=== PATIENT | female | born 1975 | race Caucasian/White ===

== ENCOUNTER 2017-08-22 09:19 | Emergency (ER) | payer MEDICAID, SELFPAY ==
[2017-08-22 09:21] VITALS: BP 131/75; PULSE 75; RESP 18; O2SAT 98
--- NOTE | 2017-08-22 09:22 | HMH.EDABDPAI ---
ED Disposition Clinical Impression: Generalized anxiety disorder Chest pain Qualifiers: Chest pain type: unspecified Qualified Code(s): R07.9 - Chest pain, unspecified Disposition: Home, Self-Care Condition on Discharge: Fair Additional Instructions: Advised to followup [facility] Dr. Woo to discuss treatment for her Anxiety disorder. Referrals: Yuriy Woo MD [Primary Care Provider] - 3 days Time of Disposition: 11:07 - Critical Care Critical Care Time: No Attestation: On , the high probability of a clinically significant, sudden or life threatening deterioration of the following system(s) required my full and direct attention, intervention and personal management. The time I documented below is in addition to time spent performing reported procedures but includes the following listed in this critical care notation. Medical Decision Making - Medical Records Medical records reviewed: Yes: I reviewed the patient's medical records. Vital Signs: 08/22/17 09:21 Temperature Source Oral Pulse Rate [Right Brachial] 75 Respiratory Rate 18 Blood Pressure [Right Arm] 131/75 Blood Pressure Mean [Right Arm] 93 Blood Pressure Source [Right Arm] Automatic Cuff Blood Pressure Position [Right Arm] Sitting 02 Sat by Pulse Oximetry 98 Oxygen Delivery Method Room Air - Lab Data Lab results reviewed: Yes: I reviewed the patient's lab results. Lab Results 08/22/17 09:15: WBC 4.1 L, RBC 4.39, Hgb 14.0, Hct 40.9, MCV 93.1, MCH 31.8 H, MCHC 34.1, RDW 12.1, Plt Count 207, MPV 8.0, Neut % (Auto) 50.6, Lymph % (Auto) 36.7, [place] % (Auto) 5.4, Eos % (Auto) 5.9, Baso % (Auto) 1.4, Neut # (Auto) 2.1, Lymph # (Auto) 1.5, [place] # (Auto) 0.2, Eos # (Auto) 0.2, Baso # (Auto) 0.1 08/22/17 09:15: Sodium 141, Potassium 3.7, Chloride 104, Carbon Dioxide 31, Anion Gap 9.7, BUN 11, Creatinine 0.90, Estimated Creat Clear 3, Estimated GFR 68, Est GFR ( Amer) 83, Glucose 88, Calcium 9.0, Total Bilirubin 0.2, AST 17, ALT 26, Alkaline Phosphatase 110, Total Creatine Kinase 78, CK-MB (CK-2) 0.6, CK-MB (CK-2) Rel Index 0.8, Troponin I < 0.02, Total Protein 7.6, Albumin 3.9, Globulin 3.7 H, Albumin/Globulin Ratio 1.1 08/22/17 09:50: Urine Color Yellow, Urine Appearance Clear, Urine pH 6.0, Ur Specific [place] 1.025, Urine Protein Negative, Urine Glucose (UA) Negative, Urine Ketones Negative, Urine Blood 2+, Urine Nitrate Negative, Urine Bilirubin Negative, Urine Urobilinogen 0.2, Ur Leukocyte Esterase Negative, Urine RBC 5-10, Urine WBC Occasional, Ur Squamous Epith Cells 10-20, Urine Bacteria 2+ 08/22/17 09:50: Urine Opiates Screen Negative, Ur Barbituates Screen Negative, Ur Phencyclidine Scrn Negative, Ur Amphetamines Screen Negative, U Methamphetamines Scrn Negative, U Benzodiazepines Scrn Negative, Urine Cocaine Screen Negative, U Marijuana (THC) Screen Negative Result diagrams: 08/22/17 09:15 08/22/17 09:15 Orders (Tests/Meds): ED MEDICATIONS Discontinued Medications Generic Name Dose Route Start Last Admin Trade Name Louieq PRN Reason Stop Dose Admin Aspirin 324 mg 08/22/17 09:29 08/22/17 09:51 Aspirin 81mg Chewable Tablet PO 08/22/17 09:30 324 mg ONCE ONE Administration ORDERS Category Date Time Status Urine Culture Stat Micro 08/22/17 09:50 Received - Radiology Data #1 Image(s): Chest Image Reviewed: Yes I have reviewed radiologist's interpretation Preliminary Findings: Normal/NAD - Jem Inquiry Pt receiving controlled substance: No Jem was queried for this patient: No Abdominal Pain HPI - General Chief Complaint: PAIN Stated Complaint: chest pain Mode of Arrival: Ambulatory Limitations: No Limitations - History of Present Illness HPI narrative: Pt comes to the ED with complaints of chest pain over the past day or two and feels like it is gas. It started yesterday after she ate breakfast and then she drank a Pepsi and passed gas and felt better. She also reports she has
--- NOTE | 2017-08-22 09:29 | XR_ITS ---
XR chest 2V HISTORY: ITS.REASON: chest pain ORDERING PHYSICIAN: Shon Morales MD PATIENT AGE: 42 years COMPARISON: 09/10/2013 FINDINGS: The cardiomediastinal silhouette and pulmonary vascularity are within normal limits. The lungs are clear without infiltrates, suspicious nodules, or pleural effusions. There is a calcified granuloma in the right upper lobe No acute bony abnormalities. IMPRESSION: No change with no acute finding
--- NOTE | 2017-08-22 09:32 | ED_ITS ---
ED Disposition Clinical Impression: Generalized anxiety disorder Chest pain Qualifiers: Chest pain type: unspecified Qualified Code(s): R07.9 - Chest pain, unspecified Disposition: Home, Self-Care Condition on Discharge: Fair Additional Instructions: Advised to followup [facility] Dr. Woo to discuss treatment for her Anxiety disorder. Referrals: Yuriy Woo MD [Primary Care Provider] - 3 days Time of Disposition: 11:07 - Critical Care Critical Care Time: No Attestation: On , the high probability of a clinically significant, sudden or life threatening deterioration of the following system(s) required my full and direct attention, intervention and personal management. The time I documented below is in addition to time spent performing reported procedures but includes the following listed in this critical care notation. Medical Decision Making - Medical Records Medical records reviewed: Yes: I reviewed the patient's medical records. Vital Signs: 08/22/17 09:21 Temperature Source Oral Pulse Rate [Right Brachial] 75 Respiratory Rate 18 Blood Pressure [Right Arm] 131/75 Blood Pressure Mean [Right Arm] 93 Blood Pressure Source [Right Arm] Automatic Cuff Blood Pressure Position [Right Arm] Sitting 02 Sat by Pulse Oximetry 98 Oxygen Delivery Method Room Air - Lab Data Lab results reviewed: Yes: I reviewed the patient's lab results. Lab Results 08/22/17 09:15: WBC 4.1 L, RBC 4.39, Hgb 14.0, Hct 40.9, MCV 93.1, MCH 31.8 H, MCHC 34.1, RDW 12.1, Plt Count 207, MPV 8.0, Neut % (Auto) 50.6, Lymph % (Auto) 36.7, [place] % (Auto) 5.4, Eos % (Auto) 5.9, Baso % (Auto) 1.4, Neut # (Auto) 2.1 , Lymph # (Auto) 1.5, [place] # (Auto) 0.2, Eos # (Auto) 0.2, Baso # (Auto) 0.1 08/22/17 09:15: Sodium 141, Potassium 3.7, Chloride 104, Carbon Dioxide 31, Anion Gap 9.7, BUN 11, Creatinine 0.90, Estimated Creat Clear 3, Estimated GFR 68, Est GFR ( Amer) 83, Glucose 88, Calcium 9.0, Total Bilirubin 0.2, AST 17, ALT 26, Alkaline Phosphatase 110, Total Creatine Kinase 78, CK-MB (CK-2 ) 0.6, CK-MB (CK-2) Rel Index 0.8, Troponin I < 0.02, Total Protein 7.6, Albumin 3.9, Globulin 3.7 H, Albumin/Globulin Ratio 1.1 08/22/17 09:50: Urine Color Yellow, Urine Appearance Clear, Urine pH 6.0, Ur Specific [place] 1.025, Urine Protein Negative, Urine Glucose (UA) Negative, Urine Ketones Negative, Urine Blood 2+, Urine Nitrate Negative, Urine Bilirubin Negative, Urine Urobilinogen 0.2, Ur Leukocyte Esterase Negative, Urine RBC 5-10 , Urine WBC Occasional, Ur Squamous Epith Cells 10-20, Urine Bacteria 2+ 08/22/17 09:50: Urine Opiates Screen Negative, Ur Barbituates Screen Negative, Ur Phencyclidine Scrn Negative, Ur Amphetamines Screen Negative, U Methamphetamines Scrn Negative, U Benzodiazepines Scrn Negative, Urine Cocaine Screen Negative, U Marijuana (THC) Screen Negative Result diagrams: 08/22/17 09:15 08/22/17 09:15 Orders (Tests/Meds): ED MEDICATIONS Discontinued Medications Generic Name Dose Route Start Last Admin Trade Name Freq PRN Reason Stop Dose Admin Aspirin 324 mg 08/22/17 09:29 08/22/17 09:51 Aspirin 81mg Chewable Tablet PO 08/22/17 09:30 324 mg ONCE ONE Administration ORDERS Category Date Time Status Urine Culture Stat Micro 08/22/17 09:50 Received - Radiology Data #1 Image(s): Chest Image Reviewed: Yes I have reviewed radiologist's interpret
[2017-08-22 09:44] LABS: Hematocrit 40.9 % (37.0-47.0); Red Blood Count 4.39 M/mm3 (4.20-5.40); White Blood Count 4.1 K/mm3 (4.8-10.8)
[2017-08-22 09:45] LABS: Basophils % 1.4 % (0.1-2.0); Eosinophils % 5.9 % (0.1-12.0); Lymphocytes % 36.7 K/mm3 (10-50); Mean Corpuscular HGB Conc 34.1 g/dL (31.8-35.4); Mean Corpuscular Hemoglobin 31.8 pg (27.0-31.2); Mean Corpuscular Volume 93.1 fl (81-99); Monocytes % 5.4 % (1.7-9.3); Neutrophils % 50.6 % (37.0-80.0); Platelet Count 207 K/mm3 (142-424); Red Cell Distribution Width 12.1 % (11.5-17.5)
[2017-08-22 09:46] LABS: Basophils # 0.1 K/mm3 (0-0.2); Eosinophils # 0.2 K/mm3 (0.0-0.4); Lymphocytes # 1.5 K/mm3 (0.7-4.5); Monocytes # 0.2 K/mm3 (0.1-1.0); Neutrophils # 2.1 K/mm3 (1.8-7.8)
[2017-08-22 09:53] LABS: Microscopic, Urine URINE MICROSCOPIC (MICROSCOPIC)
[2017-08-22 09:58] LABS: Appearance,Urine CLEAR (Clear); Bilirubin,Urine Negative (Negative); Blood, Urine 2+ (Negative); Color,Urine YELLOW (Yellow); Glucose,Urine (UA) Negative (Negative); Ketones,Urine Negative (Negative); Leukocyte Esterase,Urine Negative (Negative); Nitrate,Urine Negative (Negative); Protein,Urine Negative (Negative); Specific Gravity, Urine 1.025 (1.005-1.030); Urobilinogen,Urine 0.2 EU/dl (0.2)
[2017-08-22 10:05] LABS: Amphetamine/Metha Screen,Urine Negative ng/mL (<1000); Barbiturates Screen,Urine Negative ng/mL (<200); Benzodiazepines Screen,Urine Negative ng/mL (200); Cannabinoid Screen,Urine Negative ng/mL (<50); Cocaine Screen,Urine Negative ng/g (<300); Methadone Screen,Urine Negative ng/mL (<300); Opiate Screen,Urine Negative ng/mL (<300); Phencyclidine Screen,Urine Negative ng/mL (<25)
[2017-08-22 10:12] LABS: Alanine Aminotransferase 26 U/L (12-78); Albumin Level 3.9 gm/dL (3.4-5.0); Albumin/Globulin Ratio 1.1 (1.1-1.8); Alkaline Phosphatase 110 U/L (46-116); Anion Gap 9.7 mEq/L (5-15); Aspartate Amino Transferase 17 U/L (15-37); Bilirubin,Total 0.2 mg/dL (0.2-1.0); Blood Urea Nitrogen 11 mg/dL (7-18); CKMB Relative Index 0.8 U/L (0-4.0); Carbon Dioxide 31 mmol/L (21.0-32.0); Chloride 104 mmol/L (98-107); Creatine Kinase 78 U/L (26-192); Creatine Kinase MB 0.6 mg/ml (0.0-3.6); Creatinine Clearance Estimated 3 mL/min (0-300); Estimated Glomerular Filt Rate 68 ml/min (>60); GFR (African American) 83 ML/MIN (>60); Globulin 3.7 gm/dl (1.3-3.2); Glucose 88 mg/dL (74-106); Potassium 3.7 mmoL/L (3.5-5.1); Sodium 141 mmol/L (136-145); Total Protein,Serum 7.6 gm/dL (6.4-8.2); Troponin I < 0.02 ng/ml (0.00-0.06)
[2017-08-22 10:16] LABS: Bacteria,Urine 2+ /lpf; WBC,Urine Occasional #/hpf (0-3)
[2017-08-22 11:40] VITALS: BP 136/85; PULSE 80; RESP 18; TEMP 36.7; O2SAT 98
== END 2017-08-22 11:40 | disposition home or self-care (01) ==
PROVIDERS: Emergency Provider General Practice; Family Provider Emergency Medicine; PCP Emergency Medicine
DX: R07.9 Chest pain, unspecified (principal); F41.1 Generalized anxiety disorder
CPT/HCPCS: 71046; 80053; 80305; 81001; 82550; 82553; 84484; 85025; 87086; 93005; 93041; 99282

== ENCOUNTER → 2019-03-25 14:10 | Outpatient (CLI) | payer OTHER, SELFPAY ==
[2019-03-25 14:42] LABS: Alanine Aminotransferase 19 U/L (12-78); Albumin Level 4.1 gm/dL (3.4-5.0); Albumin/Globulin Ratio 1.2 (1.1-1.8); Alkaline Phosphatase 114 U/L (46-116); Anion Gap 13.8 mEq/L (5-15); Aspartate Amino Transferase 19 U/L (15-37); Bilirubin,Total 0.3 mg/dL (0.2-1.0); Blood Urea Nitrogen 14 mg/dL (7-18); Calcium 9.6 mg/dL (8.5-10.1); Carbon Dioxide 30 mmol/L (21.0-32.0); Chloride 101 mmol/L (98-107); Chol/HDL Ratio 6.8 (1-3.5); Cholesterol 293 mg/dL (140-200); Creatinine,Serum 0.98 mg/dL (0.55-1.02); Estimated Glomerular Filt Rate 61 ml/min (>60); GFR (African American) 74 ML/MIN (>60); Globulin 3.5 gm/dl (1.3-3.2); Glucose 108 mg/dL (74-106); HDL Cholesterol 43 mg/dL (29-89); LDL Cholesterol 205 mg/dL (0-130); Potassium 3.8 mmoL/L (3.5-5.1); Sodium 141 mmol/L (136-145); T4 (Thyroxine) 11.2 ug/dl (4.7-13.3); Thyroid Stimulating Hormone 3.44 uIU/ml (0.358-3.740); Total Protein,Serum 7.6 gm/dL (6.4-8.2); Triglycerides 225 mg/dL (30-200); VLDL Cholesterol 45 mg/dL (0-40)
[2019-03-25 15:00] LABS: Basophils % 0.7 % (0.1-2.0); Eosinophils # 0.4 K/mm3 (0.0-0.4); Eosinophils % 8.1 % (0.1-12.0); Hematocrit 45.1 % (37.0-47.0); Hemoglobin 14.7 g/dL (12.2-16.2); Lymphocytes # 1.7 K/mm3 (0.7-4.5); Lymphocytes % 31.2 % (10-50); Mean Corpuscular HGB Conc 32.6 g/dL (31.8-35.4); Mean Corpuscular Volume 95.1 fl (81-99); Mean Platelet Volume 8.9 fl (7.4-10.4); Monocytes # 0.4 K/mm3 (0.1-1.0); Monocytes % 7.9 % (1.7-9.3); Neutrophils # 2.7 K/mm3 (1.8-7.8); Platelet Count 242 K/mm3 (142-424); Red Blood Count 4.74 M/mm3 (4.20-5.40); Red Cell Distribution Width 12.5 % (11.5-17.5); White Blood Count 5.3 K/mm3 (4.8-10.8)
[2019-03-29 14:21] LABS: Vitamin D 25 Hydroxy 31.9 ng/mL (30.0-100.0)
== END ==
PROVIDERS: Visit Provider Nurse Practitioner Family
DX: R53.83 Other fatigue (principal); E03.9 Hypothyroidism, unspecified; K21.9 Gastro-esophageal reflux disease without esophagitis; Z79.899 Other long term (current) drug therapy
CPT/HCPCS: 80053; 80061; 82652; 84436; 84443; 85025

== ENCOUNTER → 2020-09-07 14:20 | Outpatient (CLI) | payer OTHER, SELFPAY ==
[2020-09-07 14:33] LABS: Basophils # 0.1 K/mm3 (0-0.2); Basophils % 0.9 % (0.1-2.0); Eosinophils # 0.6 K/mm3 (0.0-0.4); Eosinophils % 10.4 % (0.1-12.0); Hematocrit 41.2 % (37.0-47.0); Hemoglobin 13.7 g/dL (12.2-16.2); Lymphocytes # 2.5 K/mm3 (0.7-4.5); Lymphocytes % 41.2 % (10-50); Mean Corpuscular HGB Conc 33.2 g/dL (31.8-35.4); Mean Corpuscular Hemoglobin 32.4 pg (27.0-31.2); Mean Corpuscular Volume 97.6 fl (81-99); Mean Platelet Volume 8.9 fl (7.4-10.4); Monocytes # 0.4 K/mm3 (0.1-1.0); Monocytes % 6.6 % (1.7-9.3); Neutrophils # 2.5 K/mm3 (1.8-7.8); Neutrophils % 40.8 % (37.0-80.0); Platelet Count 235 K/mm3 (142-424); Red Blood Count 4.23 M/mm3 (4.20-5.40); Red Cell Distribution Width 12.5 % (11.5-17.5); White Blood Count 6.1 K/mm3 (4.8-10.8)
[2020-09-07 14:48] LABS: Alanine Aminotransferase 16 U/L (12-78); Albumin Level 4.4 g/dl (3.5-5.0); Albumin/Globulin Ratio 1.4 (1.1-1.8); Alkaline Phosphatase 115 U/L (38-126); Anion Gap 11.8 mEq/L (5-15); Aspartate Amino Transferase 29 U/L (14-36); Bilirubin,Total 0.3 mg/dl (0.2-1.3); Blood Urea Nitrogen 14 mg/dl (7-17); Calcium 9.8 mg/dl (8.4-10.2); Carbon Dioxide 28 mmol/L (22.0-30.0); Chloride 103 mmol/L (98-107); Cholesterol 279 mg/dl (140-200); Estimated Glomerular Filt Rate 67 ml/min (>60); GFR (African American) 82 ML/MIN (>60); Globulin 3.2 g/dL (1.3-3.2); Glucose 119 mg/dl (74-100); HDL Cholesterol 40 mg/dl (40-60); Potassium 3.8 mmoL/L (3.5-5.1); Sodium 139 mmol/L (136-145); Total Protein,Serum 7.6 g/dl (6.3-8.2)
[2020-09-07 14:58] LABS: Triglycerides 507 mg/dl (30-150)
[2020-09-07 14:59] LABS: Direct LDL Cholesterol 126.83 mg/dL (100-129)
[2020-09-07 15:04] LABS: Free T4 (Free Thyroxine) 1.29 ng/dl (0.78-2.19)
[2020-09-07 15:05] LABS: 25-OH Vitamin D, Total 14.9 ng/mL (30-100)
[2020-09-07 15:18] LABS: Thyroid Stimulating Hormone 1.55 uIU/mL (0.465-4.68)
== END ==
PROVIDERS: Visit Provider Physician Assistant
DX: E03.9 Hypothyroidism, unspecified (principal); E78.5 Hyperlipidemia, unspecified; E55.9 Vitamin D deficiency, unspecified
CPT/HCPCS: 80053; 80061; 82306; 84439; 84443; 85025

== ENCOUNTER → 2020-10-23 08:33 | Outpatient (CLI) | payer OTHER, SELFPAY ==
--- NOTE | 2020-10-23 08:34 | MR_ITS ---
PROCEDURE: MR LUMBAR SPINE WO CON CLINICAL INDICATION: low back pain radiating down left leg Lt sided lbp [id number]. COMPARISON: No exams were available for comparison TECHNIQUE: Standard multiplanar multiecho sequences are performed without contrast. 3-D MIP and myelographic images are also rendered and reviewed FINDINGS: There is normal alignment. The spinal cord ends at the T12-L1 level. There is mild central disc desiccation from T12-L4 of uncertain clinical significance L1-L2: Unremarkable. L2-L3: Unremarkable. L3-L4: Unremarkable. L4-5: Minimal bulging disc with mild facet ligamentum hypertrophy with mild bilateral foraminal narrowing L5-S1: Mild bilateral foraminal narrowing from facet hypertrophic change. No extruded herniated disc or canal stenosis. IMPRESSION: 1. No extruded herniated disc or canal stenosis. 2. Minimal bulging disc at L4-5 with mild bilateral foraminal narrowing at L4-5 and L5-S1. 3. Mild multilevel central disc desiccation of uncertain clinical significance Dictated by: Dante Gramajo MD 10/25/2020 09:14 Dante Gramajo MD in [place] 10/25/2020 09:14
== END ==
PROVIDERS: PCP Emergency Medicine; Visit Provider Emergency Medicine
DX: M54.9 Dorsalgia, unspecified (principal); M54.5 Low back pain
CPT/HCPCS: 72148; 76376

== ENCOUNTER 2020-10-30 13:00 | Outpatient (RCR) | payer OTHER, SELFPAY ==
--- NOTE | 2020-09-18 15:06 | HMH.PTOPEV ---
PT Outpatient Evaluation Rehab PT Outpatient Evaluation Start: 09/18/20 13:35 Freq: Status: Active Protocol: Document 09/18/20 13:35 [email or web address] (Rec: 09/18/20 15:05 [email or web address] [id number]) Electronically Signed By Shawn Aguilar, PT 09/18/20 13:35 Outpatient Therapy Subjective History Subjective History Pt. is a 45 year old female who presents to outpatient PT clinic w/ complaints of subacute and intermittent L-sided LB and LLE(posterior/posterolateral hip and posterior thigh) P! of insidious onset 1 month ago. Pt. reports thinking she acquired it from the duties at her job that include bending, pushing, and lifting heavy boxes over time. However, pt. reports being on light duty for the past couple weeks until this coming Friday(09/22) when she returns to normal duty.-see plan in above SOAP(09/18/20). Pt. describes her symptom as a shooting P ! into the buttock and thigh. Pt. denies symptoms inferior to the LLE knee, denies symptoms into the RLE, and denies bowel/bladder dysfunction. Pt. reports symptoms worsen w/ sitting for a prolonged period of time, states having symptom releif w / immediate standing. Pt. also reports symptoms worsen w/ pushing and lifting heavy boxes at work. Pt. reports she is currently not bending nor lifting heavy boxes(normal duty), but standing and putting tape on boxes(light duty). Pt. denies having a recent diagnostic image taken, nor an injection for current pathology. Pt. also reports her MD wants her to make an appointment to see a Chiropractor(PT instructed pt. to hold on this at this time,
== END 2020-12-05 16:52 | disposition home or self-care (01) ==
LOC: PT.CARL 13:00
PROVIDERS: PCP Emergency Medicine; Visit Provider Physician Assistant
DX: M54.32 Sciatica, left side (principal)
CPT/HCPCS: 97110; 97140; 97163; 97164

== ENCOUNTER → 2020-11-06 10:00 | Outpatient (POV) | payer OTHER, SELFPAY ==
[2020-11-06 10:06] VITALS: BP 145/81; PULSE 78; RESP 18; TEMP 36.8; O2SAT 98; BMI 28.4
--- NOTE | 2020-11-06 10:25 | HMH.PMCON ---
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 twice daily as needed patient is good to return to work this week. If she has any flare in her pain we discussed epidural injection she is going to call our office if she would like to proceed with this. We will also give her a refill of her Flexeril. We will see her back in [address] Blair has reviewed this note and agrees with this plan of care. This note was dictated using voice recognition software and may contain errors or omissions HPI - Data of Consult Consult date: 11/06/20 Requesting Physician: Perla Cortez APRN Primary Care Provider: CUBA Maddox - Consult Narrative Reason for consult: Back pain, leg pain History of present illness: Ms. Parker is a 45 year old female who presents today for consultation in regards to her back and leg pain. Patient rates her pain a 5 out of 10. Patient is doing extremely well at this time. Patient states that when the pain is aggravated that it shoots down her left leg. Patient states that she has been doing physical therapy at this time and had Flexeril which has been very beneficial for her. Patient is not on any antiinflammatories at this time. Patient and I discussed anti-inflammatory use along with epidural injections. Patient may be a candidate for this with her pain begins to recur. She has had a recent MRI showing degenerative changes. She is currently in a Suboxone program. CC: Perla Cortez APRN [facility] History I have reviewed the patient's past medical history: Yes Medical History: Reports:: Anxiety, Hyperlipidemia, Hypertension Denies:: Cancer, Diabetes Mellitus Type 1, Diabetes Mellitus Type 2, MRSA *Have you ever received a pneumonia vaccine?: Yes *Have you received a flu vaccine this season?: Yes Other Medical History: Reports: Arthritis, Hypothyroidism Other Surgeries: Yes: Hysterectomy-Partial, Tubal Ligation Amputation: No Fractures: No - *Social History Smoking Status: Current every day smoker Tobacco Type: cigarettes # Packs/Day (cigarettes): 1 Alcohol Intake: never Substance Use Type: opiates *Occupational Status:: other Housing: house Household Members: other *Travel in the last 8 weeks: None - Psychiatric History Pschychiatric History:: Reports:: Anxiety Family Hx:: Unable to obtain Review of Systems - Review of Systems ROS General: no recent weight change, no fever, no sleep disturbances Respiratory: no cough, no shortness of air, no recurring pulmonary infections Cardiovascular/Peripheral Vascular: No chest pain, No palpitations, no edema, no shortness of breath. Gastrointestinal: no new onset incontinence, normal bowel movements reported Genitourinary: no new onset incontinence Musculoskeletal: Back pain, leg pain Psychiatric: normal mood/ affect Neurological: [denies new onset weakness in extremities], [denies new onset balance issues] Meds Home Medications Medication Instructions Recorded Confirmed Type buprenorphine 8 mg-naloxone 2 mg 10 mg SUBLINGUAL Q24H mg 08/27/17 10/10/20 History sublingual film levothyroxine 100 mcg tablet See Rx Instructions .ROUTE 03/18/19 10/10/20 Rx .COMPLEX #14 tab methylprednisolone 4 mg tablets in 4 mg PO PER PKG DIR 6 Days #21 tab 09/07/20 10/10/20 Rx a dose pack omeprazole 40 mg capsule,delayed 40 mg PO DAILY #90 cap 09/07/20 10/10/20 Rx release atorvastatin 40 mg tablet 40 mg PO HS #90 tab 09/21/20 10/10/20 Rx ergocalciferol (vitamin D2) 1,250 1,250 mcg PO WEEKLY #15 cap 09/21/20 10/10/20 Rx mcg (50,000 unit) caps
== END ==
PROVIDERS: PCP Physician Assistant; Visit Provider Clinical Nurse Specialist Family Health
DX: M47.896 Other spondylosis, lumbar region (principal); M54.16 Radiculopathy, lumbar region
CPT/HCPCS: 99202; G0463

== ENCOUNTER → 2023-06-05 07:12 | Outpatient (CLI) | payer OTHER, SELFPAY ==
[2023-06-05 19:31] LABS: Alanine Aminotransferase 15 U/L (12-78); Albumin Level 4.3 g/dl (3.5-5.0); Albumin/Globulin Ratio 1.3 (1.1-1.8); Alkaline Phosphatase 105 U/L (38-126); Aspartate Amino Transferase 27 U/L (14-36); Bilirubin,Total 0.3 mg/dl (0.2-1.3); Blood Urea Nitrogen 17 mg/dl (7-17); Carbon Dioxide 27 mmol/L (22.0-30.0); Chloride 101 mmol/L (98-107); Cholesterol 267 mg/dl (140-200); Estimated Glomerular Filt Rate 44 ml/min (>60); GFR (African American) 53 ML/MIN (>60); Globulin 3.3 g/dL (1.3-3.2); Glucose 92 mg/dl (74-100); Total Protein,Serum 7.6 g/dl (6.3-8.2); Triglycerides 256 mg/dl (30-150); VLDL Cholesterol 51 mg/dL (0-40)
[2023-06-05 19:33] LABS: Anion Gap 10.3 mEq/L (5-15); Chol/HDL Ratio 5.8 (1-3.5); HDL Cholesterol 46 mg/dl (40-60); Potassium 4.3 mmoL/L (3.5-5.1); Sodium 134 mmol/L (136-145)
[2023-06-05 19:42] LABS: Direct LDL Cholesterol 151.73 mg/dL (100-129)
[2023-06-05 19:43] LABS: Basophils % 0.2 % (0.1-2.0); Eosinophils # 0.4 K/mm3 (0.0-0.4); Eosinophils % 5.1 % (0.1-12.0); Hematocrit 42.3 % (37.0-47.0); Hemoglobin 14.1 g/dL (12.2-16.2); Lymphocytes # 2.4 K/mm3 (0.7-4.5); Lymphocytes % 29.7 % (10-50); Mean Corpuscular HGB Conc 33.3 g/dL (31.8-35.4); Mean Corpuscular Hemoglobin 32.2 pg (27.0-31.2); Mean Corpuscular Volume 96.9 fl (81-99); Mean Platelet Volume 9.4 fl (7.4-10.4); Monocytes # 0.5 K/mm3 (0.1-1.0); Monocytes % 5.6 % (1.7-9.3); Neutrophils # 4.8 K/mm3 (1.8-7.8); Neutrophils % 59.5 % (37.0-80.0); Platelet Count 243 K/mm3 (142-424); Red Blood Count 4.37 M/mm3 (4.20-5.40); Red Cell Distribution Width 12.9 % (11.5-17.5)
[2023-06-05 19:49] LABS: 25-OH Vitamin D, Total 37.3 ng/mL (30-100)
[2023-06-07 09:12] LABS: Estradiol <5.0 pg/mL (.); LH 36.6 mIU/mL (.); Progesterone <0.1 ng/mL (.); Testosterone,Total <3 ng/dL (4-50)
[2023-06-11 13:17] LABS: Estrogen 33 pg/mL (.)
[2023-06-16 08:39] LABS: Anti Mullerian Hormone (AMH) <0.015
== END ==
PROVIDERS: PCP Physician Assistant; Visit Provider Physician Assistant
DX: E03.9 Hypothyroidism, unspecified (principal); M47.816 Spondylosis without myelopathy or radiculopathy, lumbar region; R39.9 Unspecified symptoms and signs involving the genitourinary system; E66.9 Obesity, unspecified; Z68.30 Body mass index [BMI] 30.0-30.9, adult
CPT/HCPCS: 80053; 80061; 82306; 82397; 82670; 82672; 83001; 83002; 84144; 84403; 84443; 85025; 87086

== ENCOUNTER → 2023-06-12 09:06 | Outpatient (CLI) | payer OTHER, SELFPAY ==
[2023-06-12 20:12] LABS: Blood Urea Nitrogen 13 mg/dl (7-17); Calcium 8.8 mg/dl (8.4-10.2); Carbon Dioxide 28 mmol/L (22.0-30.0); Chloride 102 mmol/L (98-107); Estimated Glomerular Filt Rate 53 ml/min (>60); GFR (African American) 64 ML/MIN (>60); Glucose 92 mg/dl (74-100); Sodium 138 mmol/L (136-145)
== END ==
PROVIDERS: PCP Physician Assistant; Visit Provider Physician Assistant
DX: N39.0 Urinary tract infection, site not specified (principal); R79.89 Other specified abnormal findings of blood chemistry
CPT/HCPCS: 80048; 87086